=== PATIENT | female | born 1980 | race Caucasian/White ===

== ENCOUNTER 2018-07-14 07:46 | Outpatient (CLI) | payer OTHER, SELFPAY ==
[2018-07-14 08:07] LABS: Abs Immature Grans 0.01 k/cumm (0.0-0.09); Absolute Basophil Count 0.05 k/cumm (0.0-0.2); Absolute Eosinophil Count 0.21 k/cumm (0.0-0.7); Absolute Lymphocyte Count 1.48 k/cumm (1.2-3.4); Absolute Monocyte Count 0.84 k/cumm (0.11-0.7); Absolute Neutrophil Count 5.73 k/cumm (1.2-6.7); Basophils % 0.6; Eosinophils % 2.5; HCT 41.6 % (36.0-46.0); HGB 13.9 g/dL (12.0-15.5); Immature Grans % 0.1; Lymphocytes % 17.8; Mean Corp. HGB Concentration 33.4 g/dL (32.0-36.0); Mean Corpuscular Hemoglobin 29.7 pg (27.0-33.0); Mean Corpuscular Volume 88.9 fL (80-95); Mean Platelet Volume 13.5 fL (8.0-11.0); Monocytes % 10.1; Neutrophils % 68.9; RBC 4.68 m/cumm (4.00-5.20); RBC Distribution Width 12.7 % (11.7-14.6); White Blood Cell Count 8.32 k/cumm (4.4-10.8)
[2018-07-14 08:37] LABS: Platelet Count 30 x1000/uL (130-400)
== END 2018-07-14 08:06 ==
PROVIDERS: PCP Physician Assistant Medical; Visit Provider Internal Medicine Hematology & Oncology
DX: D69.6 Thrombocytopenia, unspecified (principal)
CPT/HCPCS: 36415; 85025

== ENCOUNTER 2018-07-22 09:18 | Outpatient (CLI) | payer OTHER, SELFPAY ==
[2018-07-22 09:41] LABS: Abs Immature Grans 0.07 k/cumm (0.0-0.09); Absolute Lymphocyte Count 2.78 k/cumm (1.2-3.4); Absolute Neutrophil Count 8.53 k/cumm (1.2-6.7); Basophils % 0.2; Eosinophils % 1.6; HCT 40.8 % (36.0-46.0); HGB 13.6 g/dL (12.0-15.5); Immature Grans % 0.6; Lymphocytes % 22.6; Mean Corp. HGB Concentration 33.3 g/dL (32.0-36.0); Mean Corpuscular Volume 89.9 fL (80-95); Mean Platelet Volume 10.7 fL (8.0-11.0); Monocytes % 5.5; Neutrophils % 69.5; Platelet Count 157 x1000/uL (130-400); RBC 4.54 m/cumm (4.00-5.20); RBC Distribution Width 12.5 % (11.7-14.6); White Blood Cell Count 12.28 k/cumm (4.4-10.8)
[2018-07-22 09:43] LABS: Absolute Basophil Count 0.02 k/cumm (0.0-0.2); Absolute Monocyte Count 0.68 k/cumm (0.11-0.7)
== END 2018-07-22 09:38 ==
PROVIDERS: PCP Physician Assistant Medical; Visit Provider Internal Medicine Hematology & Oncology
DX: D69.3 Immune thrombocytopenic purpura (principal)
CPT/HCPCS: 36415; 85025

== ENCOUNTER 2018-07-28 08:42 | Outpatient (CLI) | payer OTHER, SELFPAY ==
[2018-07-28 09:13] LABS: Abs Immature Grans 0.05 k/cumm (0.0-0.09); Absolute Lymphocyte Count 3.05 k/cumm (1.2-3.4); Absolute Monocyte Count 1.06 k/cumm (0.11-0.7); Basophils % 0.6; Eosinophils % 0.8; HCT 40.5 % (36.0-46.0); HGB 13.7 g/dL (12.0-15.5); Immature Grans % 0.4; Lymphocytes % 24.7; Mean Corp. HGB Concentration 33.8 g/dL (32.0-36.0); Mean Corpuscular Hemoglobin 29.8 pg (27.0-33.0); Mean Corpuscular Volume 88.2 fL (80-95); Monocytes % 8.6; Neutrophils % 64.9; RBC 4.59 m/cumm (4.00-5.20); RBC Distribution Width 12.8 % (11.7-14.6); White Blood Cell Count 12.33 k/cumm (4.4-10.8)
[2018-07-28 10:02] LABS: Absolute Basophil Count 0.07 k/cumm (0.0-0.2)
[2018-07-28 10:03] LABS: Platelet Count 48 x1000/uL (130-400)
== END 2018-07-28 09:02 ==
PROVIDERS: PCP Physician Assistant Medical; Visit Provider Internal Medicine Hematology & Oncology
DX: D69.3 Immune thrombocytopenic purpura (principal)
CPT/HCPCS: 36415; 85025

== ENCOUNTER 2018-08-04 09:22 | Outpatient (CLI) | payer OTHER, SELFPAY ==
[2018-08-04 09:52] LABS: Abs Immature Grans 0.02 k/cumm (0.0-0.09); Absolute Basophil Count 0.05 k/cumm (0.0-0.2); Absolute Lymphocyte Count 2.42 k/cumm (1.2-3.4); Absolute Monocyte Count 0.76 k/cumm (0.11-0.7); Absolute Neutrophil Count 7.05 k/cumm (1.2-6.7); Basophils % 0.5; HCT 38.3 % (36.0-46.0); HGB 12.8 g/dL (12.0-15.5); Immature Grans % 0.2; Lymphocytes % 23.3; Mean Corp. HGB Concentration 33.4 g/dL (32.0-36.0); Mean Corpuscular Hemoglobin 29.6 pg (27.0-33.0); Mean Corpuscular Volume 88.7 fL (80-95); Mean Platelet Volume 12.8 fL (8.0-11.0); Monocytes % 7.3; Neutrophils % 67.7; RBC 4.32 m/cumm (4.00-5.20); RBC Distribution Width 12.8 % (11.7-14.6)
[2018-08-04 10:21] LABS: Diff Comment PLT Morph Reviewed
[2018-08-04 10:22] LABS: Platelet Count 65 x1000/uL (130-400); RBC Morphology Normal
== END 2018-08-04 09:42 ==
PROVIDERS: PCP Physician Assistant Medical; Visit Provider Internal Medicine Hematology & Oncology
DX: D69.3 Immune thrombocytopenic purpura (principal)
CPT/HCPCS: 36415; 85025

== ENCOUNTER 2018-11-03 13:57 | Outpatient (CLI) | payer OTHER, SELFPAY ==
[2018-11-03 14:25] LABS: Abs Immature Grans 0.02 k/cumm (0.0-0.09); Absolute Basophil Count 0.06 k/cumm (0.0-0.2); Basophils % 0.6; Immature Grans % 0.2; Mean Platelet Volume 13.4 fL (8.0-11.0)
[2018-11-03 14:35] LABS: Absolute Eosinophil Count 0.15 k/cumm (0.0-0.7); Absolute Lymphocyte Count 2.46 k/cumm (1.2-3.4); Absolute Monocyte Count 0.64 k/cumm (0.11-0.7); Absolute Neutrophil Count 6.45 k/cumm (1.2-6.7); Eosinophils % 1.5; HCT 42.4 % (36.0-46.0); HGB 14.1 g/dL (12.0-15.5); Lymphocytes % 25.2; Mean Corp. HGB Concentration 33.3 g/dL (32.0-36.0); Mean Corpuscular Hemoglobin 29.3 pg (27.0-33.0); Monocytes % 6.5; RBC 4.82 m/cumm (4.00-5.20); RBC Distribution Width 13.2 % (11.7-14.6); White Blood Cell Count 9.78 k/cumm (4.4-10.8)
[2018-11-03 15:14] LABS: Platelet Count 60 x1000/uL (130-400)
== END 2018-11-03 14:17 ==
PROVIDERS: PCP Physician Assistant Medical; Visit Provider Internal Medicine Hematology & Oncology
DX: D69.3 Immune thrombocytopenic purpura (principal)
CPT/HCPCS: 36415; 85025

== ENCOUNTER 2018-12-15 07:04 | Outpatient (CLI) | payer OTHER, SELFPAY ==
[2018-12-15 07:20] LABS: Abs Immature Grans 0.12 k/cumm (0.0-0.09); Absolute Basophil Count 0.03 k/cumm (0.0-0.2); Absolute Eosinophil Count 0.09 k/cumm (0.0-0.7); Absolute Monocyte Count 1.14 k/cumm (0.11-0.7); Absolute Neutrophil Count 9.79 k/cumm (1.2-6.7); Basophils % 0.2; Eosinophils % 0.6; HCT 40.6 % (36.0-46.0); HGB 13.3 g/dL (12.0-15.5); Immature Grans % 0.8; Lymphocytes % 24.4; Mean Corp. HGB Concentration 32.8 g/dL (32.0-36.0); Mean Corpuscular Hemoglobin 30.1 pg (27.0-33.0); Mean Corpuscular Volume 91.9 fL (80-95); Mean Platelet Volume 9.9 fL (8.0-11.0); Monocytes % 7.7; Neutrophils % 66.3; Platelet Count 202 x1000/uL (130-400); RBC 4.42 m/cumm (4.00-5.20); RBC Distribution Width 14.2 % (11.7-14.6); White Blood Cell Count 14.77 k/cumm (4.4-10.8)
== END 2018-12-15 07:24 ==
PROVIDERS: PCP Physician Assistant Medical; Visit Provider Internal Medicine Hematology & Oncology
DX: D69.3 Immune thrombocytopenic purpura (principal)
CPT/HCPCS: 36415; 85025

== ENCOUNTER 2019-01-25 07:22 | Outpatient (CLI) | payer OTHER, SELFPAY ==
[2019-01-25 07:44] LABS: Abs Immature Grans 0.03 k/cumm (0.0-0.09); Absolute Basophil Count 0.05 k/cumm (0.0-0.2); Absolute Eosinophil Count 0.11 k/cumm (0.0-0.7); Absolute Lymphocyte Count 1.95 k/cumm (1.2-3.4); Absolute Monocyte Count 0.84 k/cumm (0.11-0.7); Absolute Neutrophil Count 5.58 k/cumm (1.2-6.7); Basophils % 0.6; Eosinophils % 1.3; HCT 44.5 % (36.0-46.0); HGB 14.9 g/dL (12.0-15.5); Immature Grans % 0.4; Lymphocytes % 22.8; Mean Corp. HGB Concentration 33.5 g/dL (32.0-36.0); Mean Corpuscular Hemoglobin 30.5 pg (27.0-33.0); Mean Platelet Volume 11.6 fL (8.0-11.0); Monocytes % 9.8; Neutrophils % 65.1; RBC 4.89 m/cumm (4.00-5.20); RBC Distribution Width 13.3 % (11.7-14.6); White Blood Cell Count 8.56 k/cumm (4.4-10.8)
[2019-01-25 08:07] LABS: Diff Comment PLT Morph Reviewed; Platelet Count 48 x1000/uL (130-400)
[2019-01-25 08:08] LABS: RBC Morphology Normal
== END 2019-01-25 07:42 ==
PROVIDERS: PCP Physician Assistant Medical; Visit Provider Internal Medicine Hematology & Oncology
DX: D69.3 Immune thrombocytopenic purpura (principal)
CPT/HCPCS: 36415; 85025

== ENCOUNTER 2024-07-05 14:31 | Emergency (ER) | payer OTHER, SELFPAY ==
[2024-07-05] VITALS (20 sets, daily range): BP systolic 128–145; BP diastolic 78–98; PULSE 81–132; RESP 11–26; TEMP 37; O2SAT 96–100
--- NOTE | 2024-07-05 14:30 | RT.EKG_ITS ---
APPROVED REPORT Exam: Resting ECG Reason for Exam: palpatations Patient Location: E HR:119 bpm ECG Measurements Heart Rate 119 AXIS CA 180 P 79 QRSd 76 QRS 41 QT 315 T 69 QTc 444 Conclusion Sinus tachycardia...rate> 99 Physician: No Stemi
--- NOTE | 2024-07-05 15:00 | DI.US_ITS ---
Exam(s) US LOWER EXTREMITY VENOUS LT EXAM: US LOWER EXTREMITY VENOUS LT CLINICAL HISTORY: hx of ITP, recent surgery, eval for clot. TECHNIQUE: Lower extremity venous ultrasound performed using grayscale, color-flow, and spectral Do ppler analysis. COMPARISON: No exams were available for comparison FINDINGS: The common femoral, femoral and popliteal veins demonstrate normal compressibility, augmentation, and color Doppler. The posterior tibial and peroneal veins are patent. No saphenous vein thrombosis or other superficial venous thrombosis is seen. No hematoma or Bah's cyst is seen. IMPRESSION: Negative lower extremity ultrasound. No evidence of DVT. DATA REPOSITORY:
--- NOTE | 2024-07-05 15:13 | DI.CT_ITS ---
Exam(s) CT CHEST PE ABD PELVIS W EXAM: CT CHEST PE ABD PELVIS W CLINICAL HISTORY: recent hysto, hx ITP and clots, eval for PE. TECHNIQUE: Imaging Protocol: Axial computed tomography images with coronal and sagittal reformatted images were created and reviewed. Computer aided detection (CAD) was utilized. CONTRAST MATERIAL: Intravenous: Omnipaque 350 Contrast volume:100 ml Oral: / no COMPARISON: No exams were available for comparison FINDINGS: CHEST: Pulmonary parenchyma: No consolidation. No dominant measurable mass. Tracheobronchial tree: No bronchiectasis. No mucous plugging.No bronchial wall thickening. Pleura: No effusion or pneumothorax. Mediastinum: Within normal limits. Pulmonary arteries: No visible emboli. Cardiovascular: No pericardial effusion. Thoracic aorta non-dilated. Bones: Unremarkable for age. No lytic or blastic lesions.No compression fractures. Soft tissues: Unremarkable. ABDOMEN and PELVIS: Liver: Normal density. No suspicious mass. Gallbladder and biliary tract: Cholecystectomy. No biliary dilatation. Pancreas: Normal density, no abnormal calcifications or inflammatory process. Spleen: Normal. Kidneys: Normal size, contour and axis. No radiodense stones. No obstructive uropathy. No suspicious masses seen. Adrenal glands: No masses seen. Vasculature: Abdominal aorta non-dilated. The portal and splenic veins as well as mesenteric veins a re patent. The IVC through common femoral veins also appear patent, without visible thrombus. Lymph nodes: Within normal limits. Soft tissues: Air is seen in the subcutaneous tissues of the bilateral flank regions, periumbilical r egion and extending inferiorly to the right groin region. Bladder: Unremarkable. Bowel: No obstruction or bowel wall thickening. Moderate to increased stool in the ascending throug h descending colons. Peritoneal cavity: Mild amount of stranding and trace amount of fluid in the low pelvis. No focal co llection. There are few bubbles free air in the pelvis. Bones: Unremarkable for age. Reproductive organs: Recently status post hysterectomy. IMPRESSION: No evidence of pulmonary embolism or other acute abnormality in the chest. Status post hysterectomy. There is residual air in the subcutaneous fat of the abdomen and pelvis re lated to recent hysterectomy. There are few air bubbles within the peritoneal cavity. There is a sm all amount of fluid and mild stranding in the low pelvis, consistent with recent surgery. RADIATION DOSE DELIVERED: Total DLP DATA REPOSITORY: All CT scans at this facility are submitted to the National Radiology Data Registry (NRDR) Dose Index Registry (DIR) with the [employer] (A[employer]). RADIATION OPTIMIZATION: All CT scans at this facility use at least one of these dose optimization te chniques: automated exposure control; mA and/or kV adjustment per patient size (includes targeted exa ms where dose is matched to clinical indication); or iterative reconstruction.
--- NOTE | 2024-07-05 15:16 | ED.GENADUL_ITS ---
Discharge Plan Disposition Patient Disposition: Home Condition: Good Discharge Details Clinical Impression: Dehydration, Palpitations Primary Care Provider: Kristal Buenrostro ED Provider: Richard Chew Home Meds and New Rx's Prescriptions: No Action oxycodone 5 mg capsule 5 mg PO Q4H cholecalciferol (vitamin D3) 125 mcg (5,000 unit) capsule 125 mcg PO DAILY metoprolol succinate 25 mg tablet extended release 24 hr 25 mg PO DAILY omeprazole 40 mg capsule,delayed release(DR/EC) 40 mg PO DAILY albuterol 90 mcg/actuation aerosol 90 mcg inhalation .2 puffs prn eltrombopag olamine 50 mg tablet 50 mg PO DAILY Rx Instructions: administer on an empty stomach, at least 1 hour before or 2 hours after food/meal(s) levothyroxine [Synthroid] 100 mcg tablet 100 mcg PO DAILY famotidine 40 mg tablet 40 mg PO DAILY lisdexamfetamine [Vyvanse] 70 mg capsule 70 mg PO DAILY Discharge Instructions Instructions: Dehydration, Adult (DC), Palpitations ED Additional Instructions: At this time your workup has returned reassuring. There is no signs of blood clot, bleeding, electrolyte abnormality or low blood levels. I am concerned that dehydration may be a component of your symptoms. Please drink plenty flui ds and stay well-hydrated. Recommended 12 cups of water electrolyte solution per day. I have placed a referral with our monitoring team for an outpatient Holter monitor. They will contact you for an appointment time to have this placed. If you notice any worsening of your symptoms, or any new symptoms such as vomiting, diarrhea, fever, chills, shortness of breath, chest pain, numbness, weakness, or fainting , please return immediately to the emergency department for reevaluation. Please follow up with your primary care provider as soon as possible for reassessment and reevaluation. As always, it was a pleasure participating in your medical care today. Referrals: Kristal Buenrostro [Primary Care Provider] - Discharge Orders Other Ambulatory Orders: Holter Monitor (Routine) Timeframe: 2 Days Facility: [facility] - Location: Respiratory Therapy Ordered By: Richard Chew HPI General Date/Time Provider Initiated Documentation: 07/05/24 14:33 . HPI Narrative: This is a very pleasant 44-year-old female with a past medical history of idiopathic thrombocytopenic purpura currently on Eltrombopag, asthma, hypothyroidism, who presents today for evaluation of palpitations. Patient had her surgery on the fourth on Wednesday. Surgery was uncomplicated per patient. No significant issues. Blood Wednesday she had a single episode of palpitations for 10 minutes. She felt like her heart was beating hard, but not particularly fast. She denied any significant pain at that time but she did admit to a very small amount of pleuritic pain then. The episode again happened on Wednesday, and she sought mild pleuritic pain then, however on Wednesday and Wednesday the pain was gone but just single intermittent 10-minute episodes of these atypical chest sensations were present. She also has had a couple days of mild left-sided calf achiness which has been improving. She denies any swelling in her lower extremities. Today she had 2 episodes of the atypical chest sensation and came to the ER for further assessment. She denies any hemoptysis. She states that her platelets when checked at [facility] were in the 70s, and then it was rechecked a few days ago and they had come up to 100. She denies any personal history of clots but she does have a family history of blood clots in her father and other relatives. These atypical chest sensation episodes have occurred while at rest, she denies any exertional chest pain. She denies any syncope. No headache. She still has some mild soreness in her abdomen but no significant changes there otherwise. No bleeding. No other complaints. Related Data Home Medications ?Medication ?Instructions ?Recorded ?Confirmed albuterol 90 mcg/actuation aerosol 90 mcg inhalation .2 puffs prn 07/05/24 07/05/24 inhaler cholecalciferol (vitamin D3) 125 125 mcg PO DAILY 07/05/24 07/05/24 mcg (5,000 unit) capsule eltrombopag olamine 50 mg tablet 50 mg PO DAILY 07/05/24 07/05/24 famotidine 40 mg tablet 40 mg PO DAILY 07/05/24 07/05/24 levothyroxine 100 mcg tablet 100 mcg PO DAILY 07/05/24 07/05/24 (Synthroid) lisdexamfetamine 70 mg capsule 70 mg PO DAILY 07/05/24 07/05/24 (Vyvanse) metoprolol succinate 25 mg 25 mg PO DAILY 07/05/24 07/05/24 tablet,extended release 24 hr omeprazole 40 mg capsule,delayed 40 mg PO DAILY 07/05/24 07/05/24 release oxycodone 5 mg capsule 5 mg PO Q4H 07/05/24 07/05/24 Allergies Allergy/AdvReac Type Severity Reaction Status Date / Time No Known Allergies Allergy Verified 07/05/24 14:40 General Stated Complaint: Palpitatns JEREMIAH: 3 Exam Narrative Exam Narrative: 1.Const: Well-nourished, Well-developed, appearing stated age 2.Eyes: PERRL, no conjunctival injection, and symmetrical lids. 3.ENT: Atraumatic external nose and ears. Moist MM. Neck: Symmetric, trachea midline, No thyromegaly. 4.CVS: +S1/S2, Peripheral pulses 2+ and equal in all extremities. Brisk capillary refill in all extremities. 5.RESP: Unlabored respiratory effort. Clear to auscultation bilaterally. No wheezes rales or rhonchi 6.GI: Soft, nondistended, surgical sites are clean dry and intact. No active bleeding. Mild appropriate postoperative tenderness. 7.MSK: Normocephalic/Atraumatic, Extremities w/o deformity or ttp No cyanosis or clubbing, Normal movement of all extremities. No unilateral calf swelling. Minimal achiness in the left calf. It is otherwise soft, nonindurated, nonred. 8.Skin: Warm, Dry. No rashes or lesions. 9.Neuro: network applications specialist II-XII grossly intact. Sensation grossly intact, no focal neurologic deficits. 10.Psych: (AAO) x3. Appropriate mood and affect Course Vital Signs Vital signs: Vital Signs Temperature 37.0 C 07/05/24 14:35 Pulse 132 H 07/05/24 14:35 Respiratory Rate 20 07/05/24 14:35 Blood Pressure 132/98 H 07/05/24 14:35 Pulse Oximetry 98 07/05/24 14:35 Temperature 37.0 C 07/05/24 14:35 Pulse 122 H 07/05/24 15:01 Pulse 128 H 07/05/24 15:01 Respiratory Rate 16 07/05/24 15:01 Blood Pressure 138/82 07/05/24 15:01 Blood Pressure Mean 100 07/05/24 15:01 Pulse Oximetry 100 07/05/24 15:01 Oxygen Delivery Method Room Air 07/05/24 14:35 Oxygen Flow Rate 0 07/05/24 14:35 Pain Level 3 07/05/24 14:35 Medical Decision Making This is a very pleasant 44-year-old female with a past medical history of idiopathic thrombocytopenic purpura currently on Eltrombopag, asthma, hypothyroidism, who presents today for evaluation of palpitations. Patient had her surgery on the fourth on Wednesday. Surgery was uncomplicated per patient. No significant issues. Blood Wednesday she had a single episode of palpitations for 10 minutes. She felt like her heart was beating hard, but not particularly fast. She denied any significant pain at that time but she did admit to a very small amount of pleuritic pain then. The episode again happened on Wednesday, and she sought mild pleuritic pain then, however on Wednesday and Wednesday the pain was gone but just single intermittent 10-minute episodes of these atypical chest sensations were present. She also has had a couple days of mild left-sided calf achiness which has been improving. She denies any swelling in her lower extremities. Today she had 2 episodes of the atypical chest sensation and came to the ER for further assessment. She denies any hemoptysis. She states that her platelets when checked at [facility] were in the 70s, and then it was rechecked a few days ago and they had come up to 100. She denies any personal history of clots but she does have a family history of blood clots in her father and other relatives. These atypical chest sensation episodes have occurred while at rest, she denies any exertional chest pain. She denies any syncope. No headache. She still has some mild soreness in her abdomen but no significant changes there otherwise. No bleeding. No other complaints. Exam demonstrates well-appearing female, mild tachycardia, but EKG shows no evidence of S1, every 3, or T3. She does have some minimal anterior depressions and a very subtle inferior depression as well. No STEMI or reciprocal elevations. Differential is broad but includes cardiac strain causing tachycardia secondary to blood loss post procedurally, PE, pneumonia, thyroid dysfunction or electrolyte abnormality. We will gently rehydrate with a liter of lactated Ringer's, check hemoglobin and platelets status, evaluate for these concerning etiologies monitor closely and reassess. 6 PM Laboratory workup has returned, no significant abnormalities. Mild white count of 15, however hemoglobin 14.8, platelets 201, no bandemia. VBG shows no acidosis. Electrolytes normal. Troponin normal,'s repeat troponin normal. Thyroid function/TSH normal. proBNP normal. Ultrasound of the patient's extremity shows no evidence of DVT. CTA shows no evidence of PE, status post hysterectomy with some subcu fat but no large fluid collection or signs of abscess or other significant abnormality. On reassessment after fluid hydration patient is feeling much better. Heart rate notably stable. No episodes of palpitations or tachycardia. Suspect potential dehydration to be the cause of her symptoms, especially considering that she has had some loose stool. However out of an abundance of caution we will recommend outpatient Holter monitor. Patient agrees. Patient will be discharged home. Discussed red flags which to return. At this time there is no evidence to suggest life-threatening dysrhythmia, ACS, PE dissection or other significant abnormality. I have extensively reviewed the treatment plan and discharge instructions with the patient. I have addressed all patient concerns at this time. The patient was made aware of what symptoms to monitor for that would warrant a return to the emergency department. Discussed the plan with the patient, they demonstrate verbal understanding and agreement with our assessment and plan at this time. The documentation in this chart was dictated using [employer] dictation software. Please excuse any dictation errors. FINDINGS: The common femoral, femoral and popliteal veins demonstrate normal compressibility, augmentation, and color Doppler. The posterior tibial and peroneal veins are patent. No saphenous vein thrombosis or other superficial venous thrombosis is seen. No hematoma or Bah's cyst is seen. IMPRESSION: Negative lower extremity ultrasound. No evidence of DVT. FINDINGS: CHEST: Pulmonary parenchyma: No consolidation. No dominant measurable mass. Tracheobronchial tree: No bronchiectasis. No mucous plugging.No bronchial wall thickening. Pleura: No effusion or pneumothorax. Mediastinum: Within normal limits. Pulmonary arteries: No visible emboli. Cardiovascular: No pericardial effusion. Thoracic aorta non-dilated. Bones: Unremarkable for age. No lytic or blastic lesions.No compression fractures. Soft tissues: Unremarkable. ABDOMEN and PELVIS: Liver: Normal density. No suspicious mass. Gallbladder and biliary tract: Cholecystectomy. No biliary dilatation. Pancreas: Normal density, no abnormal calcifications or inflammatory process. Spleen: Normal. Kidneys: Normal size, contour and axis. No radiodense stones. No obstructive uropathy. No suspicious masses seen. Adrenal glands: No masses seen. Vasculature: Abdominal aorta non-dilated. The portal and splenic veins as well as mesenteric veins are patent. The IVC through common femoral veins also appear patent, without visible thrombus. Lymph nodes: Within normal limits. Soft tissues: Air is seen in the subcutaneous tissues of the bilateral flank regions, periumbilical region and extending inferiorly to the right groin region. Bladder: Unremarkable. Bowel: No obstruction or bowel wall thickening. Moderate to increased stool in the ascending through descending colons. Peritoneal cavity: Mild amount of stranding and trace amount of fluid in the low pelvis. No focal collection. There are few bubbles free air in the pelvis. Bones: Unremarkable for age. Reproductive organs: Recently status post hysterectomy. IMPRESSION: No evidence of pulmonary embolism or other acute abnormality in the chest. Status post hysterectomy. There is residual air in the subcutaneous fat of the abdomen and pelvis related to recent hysterectomy. There are few air bubbles within the peritoneal cavity. There is a small amount of fluid and mild stranding in the low pelvis, consistent with recent surgery. Quality:SDOH Health Related Social Needs: Health related social needs food insecurity (Z59.41) PFSH All Active Problems (Updated 07/05/24 @ 17:39 by Richard Chew DO) Palpitations (Acute) Dehydration (Acute) Chronic ITP (idiopathic thrombocytopenia) (Acute) Globus sensation (Acute) Cough (Acute) Social History Smoking risk assessment performed?: No Alcohol Intake: current Alcohol Intake frequency: 0-2 drinks per day Substance use type: does not use
[2024-07-05 15:29] LABS: Abs Immature Grans 0.19 10^3/uL (0.0-0.06); Absolute Lymphocyte Count 2.06 10^3/uL (1.2-3.4); Absolute Monocyte Count 0.74 10^3/uL (0.1-0.8); BE (Venous) 4 mmol/L (-2-3); Basophils % 0.6 %; Eosinophils % 1.7 %; HCO3 (Venous) 30 mmol/L (23-28); HCT 45.1 % (36.0-46.0); HGB 14.8 g/dL (11.2-15.7); Immature Grans % 1.2 %; Lymphocytes % 13.1 %; MCH 29.5 pg (27.0-33.0); MCHC 32.8 % (32.0-36.0); MCV 90 fL (80-95); Monocytes % 4.7 %; Neutrophils % 78.7 %; O2 Sat (Venous) 50 %; RBC 5.02 10^6/uL (3.93-5.22); RDW 12.5 % (11.7-14.6); RDW-SD 41.4 fL; TCO2 (Venous) 27 mmol/L (24-29); WBC 15.75 10^3/uL (4.4-10.8); pCO2 (Venous) 53 mmHg (41-51); pH (Venous) 7.36 (7.31-7.41); pO2 (Venous) 29 mmHg
[2024-07-05 15:31] LABS: Absolute Basophil Count 0.09 10^3/uL (0.0-0.2); Absolute Eosinophil Count 0.27 10^3/uL (0.0-0.7)
[2024-07-05 15:43] LABS: PTT Activated 28.4 sec (20.6-30.2)
[2024-07-05] MEDS: Lactated Ringers 1,000 ML 1000 ML IV (15:54)
[2024-07-05 15:55] LABS: Platelet Count 201 10^3/uL (130-400)
[2024-07-05 15:57] LABS: ALT 19 U/L (14-59); AST 16 U/L (15-37); Albumin 3.5 g/dL (3.4-5.0); Alkaline Phosphatase 103 U/L (46-116); Anion Gap 7.9 mmol/L (3-11); BUN 10 mg/dL (7-18); Bilirubin, Total 0.4 mg/dL (0.2-1.0); CO2 29.1 mmol/L (21.0-32.0); CREATININE 0.9 mg/dL (0.55-1.02); Calcium 9.9 mg/dL (8.5-10.1); Chloride 102 mmol/L (98-107); Estimated GFR 80.84 (mL/min/1.73m2); Glucose 116 mg/dL (74-106); NT-proBNP 42 pg/mL (<300); Potassium 4.3 mmol/L (3.5-5.1); Sodium 139 mmol/L (136-145); TSH (W/Ref FT4) 2.76 uIU/mL (0.36-3.74); Total Protein 8.3 g/dL (6.4-8.2); Troponin I 6 ng/L (<or=51)
[2024-07-05] MEDS: Normal Saline - Diluent 50 ML VIAL IJ (16:27)
[2024-07-05] MEDS: Omnipaque 350 MG/ML 100 ML BTL IJ (16:27)
[2024-07-05 17:37] LABS: Troponin I 7 ng/L (<or=51)
== END 2024-07-05 18:07 | disposition home or self-care (01) ==
PROVIDERS: Emergency Provider Student in an Organized Health Care Education/Training Program; PCP Physician Assistant Medical
DX: R00.2 Palpitations (principal); E86.0 Dehydration; D69.49 Other primary thrombocytopenia; E03.9 Hypothyroidism, unspecified
CPT/HCPCS: 71275; 74177; 80053; 82805; 93005; 99285; 83880; 84443; 84484; 85025; 85610; 85730; 93010; 93225; 93971; 99284; J3490

== ENCOUNTER 2024-07-20 09:50 | Outpatient (RCR) | payer OTHER, SELFPAY | END 2024-07-26 23:59 | disposition home or self-care (01) | LOC: CARDOPNVT 09:50 | PROVIDERS: PCP Physician Assistant Medical; Visit Provider Internal Medicine Cardiovascular Disease | DX: R00.2 Palpitations (principal); I49.1 Atrial premature depolarization | CPT/HCPCS: 93225 ==

== ENCOUNTER 2024-07-27 10:36 | Outpatient (RCR) | payer OTHER, SELFPAY ==
--- NOTE | 2024-07-27 15:23 | W.HOLTRPT ---
Date of service: 07/27/24 Time of Service: 15:23 Holter Monitor Report Referring Provider:: Richard Chew Indications:: Palpitations Holter Monitor Note: This is a Holter monitor. Rhythm throughout was sinus with an average heart rate of 85. Minimum was 52, maximum 124. A total of 4 premature ventricular contractions and 10 premature atrial contractions were recorded. There was no atrial fibrillation, no high-grade AV block, no pauses greater than 3 seconds. No symptoms were reported
== END 2024-08-26 23:59 | disposition home or self-care (01) ==
LOC: CARDOPNVT 10:36
PROVIDERS: PCP Physician Assistant Medical; Visit Provider Internal Medicine Cardiovascular Disease
DX: R00.2 Palpitations (principal); I49.1 Atrial premature depolarization
CPT/HCPCS: 93226

== ENCOUNTER 2025-02-07 08:13 | Outpatient (CLI) | payer OTHER, SELFPAY ==
[2025-02-07 08:41] LABS: ALT 12 U/L (10-49); AST 19 U/L (<34); Albumin 4.0 g/dL (3.4-5.0); Alkaline Phosphatase 83 U/L (46-116); Anion Gap 7.1 mmol/L (3-11); BUN 12 mg/dL (9-23); Bilirubin, Total 0.60 mg/dL (0.2-1.2); CO2 25.9 mmol/L (20.0-31.0); Calcium 8.6 mg/dL (8.3-10.6); Chloride 107 mmol/L (98-107); Glucose 93 mg/dL (74-106); Potassium 4.3 mmol/L (3.5-5.1); Sodium 140 mmol/L (136-145); Total Protein 6.8 g/dL (5.7-8.2)
[2025-02-07 08:42] LABS: Abs Immature Grans 0.04 10^3/uL (0.0-0.06); HCT 42.4 % (36.0-46.0); HGB 14.1 g/dL (11.2-15.7); Immature Grans % 0.5 %; MCH 29.4 pg (27.0-33.0); MCHC 33.3 % (32.0-36.0); MCV 88 fL (80-95); RBC 4.80 10^6/uL (3.93-5.22); RDW 12.3 % (11.7-14.6); RDW-SD 39.9 fL; WBC 8.38 10^3/uL (4.4-10.8)
[2025-02-07 08:44] LABS: Ferritin 33 ng/mL (7-271)
[2025-02-07 08:50] LABS: Platelet Count 64 10^3/uL (130-400)
[2025-02-07 09:28] LABS: Iron 108 ug/dL (50-170); Total Iron Binding Capacity 318 ug/dL (250-425); Transferrin Sat 34 % (15-50)
== END 2025-02-07 08:14 | disposition home or self-care (01) ==
LOC: LBO 08:13
PROVIDERS: PCP Physician Assistant Medical; Visit Provider Internal Medicine Hematology & Oncology
DX: D69.3 Immune thrombocytopenic purpura (principal); D50.0 Iron deficiency anemia secondary to blood loss (chronic)
CPT/HCPCS: 36415; 80053; 82728; 83540; 83550; 85025